=== PATIENT | male | born 1995 | race African-American/Black ===

== ENCOUNTER 2016-11-12 16:03 | Emergency (ER) | payer SELFPAY ==
[~2016-11-12 16:03] MED LIST: PERIDEX480 ML PO; ULTRAM PO
[2016-11-15 08:48] LABS: CHLAMYDIA TRACH Detected (Not Detected); N GONOR Not Detected (Not Detected)
== END 2016-11-12 16:40 | disposition home or self-care (01) ==
LOC: SED 16:03
PROVIDERS: Physician Assistant Medical
DX: Z20.2 Contact with and (suspected) exposure to infections with a predominantly sexual mode of transmission (principal)
CPT/HCPCS: 87491; 87591; 99283